=== PATIENT | female | born 1995 | race Two or more races ===

== ENCOUNTER 2018-08-21 09:46 | Emergency (ER) | payer MEDICAID, OTHER ==
[~2018-08-21] VITALS: Ht 154.9 cm; Wt 111.4 kg
[2018-08-21 09:58] VITALS: BP 102/80
== END 2018-08-21 11:09 | disposition home or self-care (01) ==
LOC: ER 09:47
DX: B20 Human immunodeficiency virus [HIV] disease (principal); Z02.89 Encounter for other administrative examinations; Z88.8 Allergy status to other drugs, medicaments and biological substances
CPT/HCPCS: 99281

== ENCOUNTER 2018-09-18 10:49 | Emergency (ER) | payer MEDICAID ==
[~2018-09-18] VITALS: Ht 154.9 cm; Wt 106.8 kg
[2018-09-18 10:52] VITALS: BP 120/78
[2018-09-18] MEDS ORDERED: NAPR500T6 PO (11:47)
== END 2018-09-18 12:05 | disposition home or self-care (01) ==
LOC: ER 10:50
DX: M76.61 Achilles tendinitis, right leg (principal); Z88.8 Allergy status to other drugs, medicaments and biological substances
CPT/HCPCS: 73610; 99283

== ENCOUNTER 2018-09-26 15:31 | Outpatient (CLI) | payer MEDICAID ==
[~2018-09-26 15:31] MED LIST: NAPR500T6 PO
[2018-09-26 15:35] VITALS: BP 114/71
== END 2018-09-26 16:09 | disposition home or self-care (01) ==
LOC: ORTHO 15:31
PROVIDERS: ATTEND Orthopaedic Surgery
DX: M25.571 Pain in right ankle and joints of right foot (principal)
CPT/HCPCS: 73610; 73650; G0463

== ENCOUNTER 2018-12-25 11:23 | Emergency (ER) | payer MEDICAID ==
[~2018-12-25] VITALS: Ht 152.4 cm; Wt 113.6 kg
[2018-12-25 11:37] VITALS: BP 164/82
--- NOTE | 2018-12-25 12:05 | NUR ---
pt has been out of her med [facility] for past 4 mos. getting the run around by medicare and [facility]. requesting help for resources. social work program coordinator juan called. left message.
[2018-12-25] MEDS ORDERED: ELVI1TAB3 PO (12:48)
== END 2018-12-25 13:19 | disposition home or self-care (01) ==
LOC: ER 11:24
DX: B20 Human immunodeficiency virus [HIV] disease (principal); Z79.899 Other long term (current) drug therapy
CPT/HCPCS: 99283

== ENCOUNTER 2019-06-18 07:53 | Emergency (ER) | payer MEDICAID ==
[~2019-06-18] VITALS: Ht 154.9 cm; Wt 123.3 kg
[~2019-06-18 07:53] MED LIST changes: +ELVI1TAB3 PO
[2019-06-18 09:14] VITALS: BP 135/78
[2019-06-18 09:28] LABS: CLARITY,URINE CLEAR (Clear); COLOR,URINE YELLOW (Yellow); GLUCOSE, URINE NEGATIVE (Neg); KETONES,URINE NEGATIVE (Neg); LEUKOCYTE ESTERASE ,URINE NEGATIVE (Neg); NITRITES, URINE NEGATIVE (Neg); OCCULT BLOOD,URINE TRACE-INTACT (Neg); PROTEIN,URINE NEGATIVE (Neg); UA COLLECTION TYPE NON-SPECIFIED; URINE HCG NEGATIVE (NEG); UROBILINOGEN,URINE 0.2 E.U/dL (0.2-1.0)
[2019-06-18 09:29] LABS: BASOPHILS # (AUTO) 0.1 X10'3 (0-0.2); EOSINOPHILS # (AUTO) 0.1 X10'3 (0-0.9); EOSINOPHILS % (AUTO) 1.5 % (0-6); HEMOGLOBIN 13.3 g/dl (12.0-16.0); LYMPHOCYTES # (AUTO) 2.2 X10'3 (1.1-4.8); LYMPHOCYTES % (AUTO) 29.5 % (21-51); MEAN CORPUSCULAR HEMOGLOBIN 29.3 PG (27.0-31.0); MEAN CORPUSCULAR VOLUME 86.2 FL (78-98); MEAN PLATELET VOLUME 8.6 FL (7.4-10.4); MONOCYTES # (AUTO) 0.6 X10'3 (0-0.9); MONOCYTES % (AUTO) 7.4 % (2-12); NEUTROPHILS # (AUTO) 4.5 X10'3 (1.8-7.7); NEUTROPHILS % (AUTO) 60.6 % (42-75); PLATELET COUNT 258 X10'3 (140-440); RED BLOOD COUNT 4.52 X10'6 (4.20-5.60); RED CELL DISTRIBUTION WIDTH 15.4 % (11.5-14.5); WHITE BLOOD COUNT 7.5 X10'3 (4.5-11.0)
[2019-06-18 09:37] LABS: BACTERIA,URINE FEW /HPF (Neg); MUCUS STRANDS FEW /LPF (Neg); RBC,URINE 0-2 /HPF (0-2); SQUAMOUS EPITHELIAL CELL,UR MANY /LPF (FEW); WBC,URINE 0-4 /HPF (0-4)
[2019-06-18] MEDS ORDERED: IBUP-1985 PO (10:14)
[2019-06-18 10:15] LABS: ALANINE AMINOTRANSFERASE 35 U/L (12-78); ALBUMIN 3.8 G/DL (3.4-5.0); ALBUMIN/GLOBULIN RATIO 0.9 (1.1-1.5); ALKALINE PHOSPHATASE 98 IU/L (46-116); ANION GAP 9 (8-16); ASPARTATE AMINO TRANSFERASE 17 U/L (10-37); BILIRUBIN,TOTAL 0.2 MG/DL (0.1-1.0); BLOOD UREA NITROGEN 14 MG/DL (7-18); BUN/CREATININE RATIO 20.6 (6.6-38.0); CHLORIDE 104 MMOL/L (99-107); CREATININE 0.68 MG/DL (0.40-0.90); GLUCOSE 95 MG/DL (70-104); POTASSIUM 3.6 MMOL/L (3.5-5.1); SODIUM 138 MMOL/L (135-145); TOTAL CARBON DIOXIDE 24.9 MMOL/L (24-32); TOTAL PROTEIN 8.2 G/DL (6.4-8.2); eGFR > 90 ML/MIN
[2019-06-18 10:27] LABS: MAGNESIUM 1.7 MG/DL (1.5-2.4)
[2019-06-19 05:13] LABS: BASO (ABSOLUTE) 0.1 x10E3/uL (0.0-0.2); BASOS 1 % (Not Estab.); EOS 1 % (Not Estab.); EOS (ABSOLUTE) 0.1 x10E3/uL (0.0-0.4); HEMATOCRIT 37.3 % (34.0-46.6); HEMOGLOBIN 12.3 g/dL (11.1-15.9); LYMPHS 31 % (Not Estab.); LYMPHS (ABSOLUTE) 2.2 x10E3/uL (0.7-3.1); MCH 29.3 pg (26.6-33.0); MCV 89 fL (79-97); MONOCYTES 6 % (Not Estab.); MONOCYTES (ABSOLUTE) 0.5 x10E3/uL (0.1-0.9); NEUTROPHILS 61 % (Not Estab.); NEUTROPHILS (ABSOLUTE) 4.4 x10E3/uL (1.4-7.0); PLATELETS 266 x10E3/uL (150-450); RDW 15.8 % (11.7-15.4); WBC 7.2 x10E3/uL (3.4-10.8)
[2019-06-19 13:15] LABS: % CD 8 POS. LYMPH. 39.8 % (12.0-35.5); ABS. CD 8 SUPPRESSOR 876 /uL (109-897); ABSOLUTE CD 4 HELPER 704 /uL (359-1519)
[2019-06-19 17:29] LABS: ANTINUCLEAR ANTIBODIES Negative (Negative)
== END 2019-06-18 12:00 | disposition home or self-care (01) ==
LOC: ER 07:54
DX: M25.561 Pain in right knee (principal); M25.562 Pain in left knee; Z21 Asymptomatic human immunodeficiency virus [HIV] infection status; J45.909 Unspecified asthma, uncomplicated; Z87.891 Personal history of nicotine dependence; Z88.8 Allergy status to other drugs, medicaments and biological substances; Z79.899 Other long term (current) drug therapy
CPT/HCPCS: 36415; 72100; 73522; 73564; 80053; 81001; 81025; 83735; 84443; 85025; 86038; 86360; 86361; 87535; 99284

== ENCOUNTER 2019-07-21 01:50 | Emergency (ER) | payer MEDICAID ==
[~2019-07-21] VITALS: Ht 154.9 cm; Wt 122.7 kg
[~2019-07-21 01:50] MED LIST changes: +IBUP-1985 PO
[2019-07-21 01:51] VITALS: BP 133/88
[2019-07-21] MEDS ORDERED: benzonatate 100mg capsule PO ONE (02:15)
[2019-07-21] MEDS ORDERED: pseudoephedrine 30mg tablet PO ONE (02:15)
[2019-07-21] MEDS ORDERED: PSEU-259 PO (02:20)
[2019-07-21] MEDS ORDERED: BENZ-16 PO (02:20)
[2019-07-21] MEDS ORDERED: ALBU18HF2 INH (02:20)
== END 2019-07-21 02:52 | disposition home or self-care (01) ==
LOC: ER 01:50
DX: J45.909 Unspecified asthma, uncomplicated (principal); Z86.2 Personal history of diseases of the blood and blood-forming organs and certain disorders involving the immune mechanism; Z88.8 Allergy status to other drugs, medicaments and biological substances; Z79.899 Other long term (current) drug therapy
CPT/HCPCS: 99283

== ENCOUNTER 2019-07-31 21:08 | Emergency (ER) | payer MEDICAID ==
[~2019-07-31] VITALS: Ht 154.9 cm; Wt 122.0 kg
[~2019-07-31 21:08] MED LIST changes: +ALBU18HF2 INH; +BENZ-16 PO; +PSEU-259 PO
[2019-07-31 21:12] VITALS: BP 128/71
[2019-07-31] MEDS ORDERED: dexamethasone 4mg tablet PO ONE (21:40)
== END 2019-07-31 21:58 | disposition home or self-care (01) ==
LOC: ER 21:08
DX: R05 Cough (principal); J45.909 Unspecified asthma, uncomplicated; Z86.2 Personal history of diseases of the blood and blood-forming organs and certain disorders involving the immune mechanism; Z88.8 Allergy status to other drugs, medicaments and biological substances; Z79.899 Other long term (current) drug therapy
CPT/HCPCS: 71045; 99283

== ENCOUNTER 2019-11-02 20:11 | Emergency (ER) | payer MEDICAID ==
[~2019-11-02] VITALS: Ht 152.4 cm; Wt 124.5 kg
[~2019-11-02 20:11] MED LIST changes: -BENZ-16 PO
--- NOTE | 2019-11-02 20:25 | NUR ---
Pt has not been taking her HIV medications for the last 3 weeks.
[2019-11-02] MEDS ORDERED: normal saline 1000ML IV soln IVB ONE (21:45)
[2019-11-02 22:14] LABS: URINE HCG NEGATIVE (NEG)
[2019-11-02 22:19] LABS: OCCULT BLOOD STOOL POSITIVE (Neg)
[2019-11-02 22:23] LABS: ALANINE AMINOTRANSFERASE 65 U/L (12-78); ALBUMIN/GLOBULIN RATIO 0.9 (1.1-1.5); ALKALINE PHOSPHATASE 91 IU/L (46-116); ANION GAP 11 (8-16); ASPARTATE AMINO TRANSFERASE 31 U/L (10-37); BILIRUBIN,TOTAL 0.4 MG/DL (0.1-1.0); BLOOD UREA NITROGEN 8 MG/DL (7-18); BUN/CREATININE RATIO 11.4 (6.6-38.0); CALCIUM 9.2 MG/DL (8.5-10.1); CHLORIDE 105 MMOL/L (99-107); GLUCOSE 90 MG/DL (70-104); LIPASE 99 U/L (73-393); POTASSIUM 4.1 MMOL/L (3.5-5.1); SODIUM 141 MMOL/L (135-145); TOTAL CARBON DIOXIDE 24.6 MMOL/L (24-32); TOTAL PROTEIN 8.3 G/DL (6.4-8.2); eGFR > 90 ML/MIN
[2019-11-02] MEDS ORDERED: METR500T PO (22:25)
[2019-11-02] MEDS ORDERED: CIPR-259 PO (22:25)
[2019-11-02 22:42] VITALS: BP 121/75
[2019-11-02 22:44] LABS: BASOPHILS # (AUTO) 0.1 X10'3 (0-0.2); BASOPHILS % (AUTO) 0.8 % (0-1); EOSINOPHILS # (AUTO) 0.1 X10'3 (0-0.9); EOSINOPHILS % (AUTO) 1.6 % (0-6); HEMATOCRIT 41.2 % (35.0-45.0); HEMOGLOBIN 13.7 g/dl (12.0-16.0); LYMPHOCYTES # (AUTO) 2.1 X10'3 (1.1-4.8); LYMPHOCYTES % (AUTO) 27.9 % (21-51); MEAN CORPUSCULAR HEMOGLOBIN 29.6 PG (27.0-31.0); MEAN CORPUSCULAR HGB CONC 33.3 g/dL (33.0-36.5); MEAN CORPUSCULAR VOLUME 88.9 FL (78-98); MEAN PLATELET VOLUME 8.9 FL (7.4-10.4); MONOCYTES # (AUTO) 0.5 X10'3 (0-0.9); MONOCYTES % (AUTO) 6.9 % (2-12); NEUTROPHILS # (AUTO) 4.7 X10'3 (1.8-7.7); NEUTROPHILS % (AUTO) 62.8 % (42-75); PLATELET COUNT 294 X10'3 (140-440); RED BLOOD COUNT 4.64 X10'6 (4.20-5.60); RED CELL DISTRIBUTION WIDTH 13.7 % (11.5-14.5); WHITE BLOOD COUNT 7.5 X10'3 (4.5-11.0)
[2019-11-02 22:57] LABS: CLARITY,URINE SLIGHTLY CLOUDY (Clear); COLOR,URINE YELLOW (Yellow); GLUCOSE, URINE NEGATIVE (Neg); KETONES,URINE NEGATIVE (Neg); LEUKOCYTE ESTERASE ,URINE SMALL (Neg); NITRITES, URINE NEGATIVE (Neg); OCCULT BLOOD,URINE TRACE-INTACT (Neg); PH,URINE 5.5 (4.8-8.0); PROTEIN,URINE NEGATIVE (Neg); UROBILINOGEN,URINE 0.2 E.U/dL (0.2-1.0)
[2019-11-02 23:01] LABS: UA COLLECTION TYPE CLN CATCH MIDSTREAM
[2019-11-02 23:12] LABS: BACTERIA,URINE FEW /HPF (Neg); MUCUS STRANDS FEW /LPF (Neg); RBC,URINE NONE SEEN /HPF (0-2); SQUAMOUS EPITHELIAL CELL,UR MANY /LPF (FEW); WBC,URINE 0-4 /HPF (0-4)
== END 2019-11-02 22:43 | disposition home or self-care (01) ==
LOC: ER 20:12
DX: K62.5 Hemorrhage of anus and rectum (principal); R19.7 Diarrhea, unspecified; R10.30 Lower abdominal pain, unspecified; J45.909 Unspecified asthma, uncomplicated; Z86.2 Personal history of diseases of the blood and blood-forming organs and certain disorders involving the immune mechanism; Z88.0 Allergy status to penicillin; Z79.899 Other long term (current) drug therapy
CPT/HCPCS: 36415; 74176; 80053; 81001; 81025; 82272; 83690; 85025; 96360; 99284; J7030

== ENCOUNTER 2019-11-03 06:58 | Emergency (ER) | payer MEDICAID ==
[~2019-11-03] VITALS: Ht 162.6 cm; Wt 123.8 kg
[~2019-11-03 06:58] MED LIST changes: +CIPR-259 PO; +METR500T PO
[2019-11-03 07:00] VITALS: BP 126/84
== END 2019-11-03 07:44 | disposition home or self-care (01) ==
LOC: ER 06:59
DX: K62.5 Hemorrhage of anus and rectum (principal); J45.909 Unspecified asthma, uncomplicated; Z88.8 Allergy status to other drugs, medicaments and biological substances; Z79.2 Long term (current) use of antibiotics; Z79.899 Other long term (current) drug therapy
CPT/HCPCS: 99281

== ENCOUNTER 2019-11-13 14:45 | Emergency (ER) | payer MEDICAID ==
[~2019-11-13] VITALS: Ht 154.9 cm; Wt 125.0 kg
[~2019-11-13 14:45] MED LIST changes: -METR500T PO
[2019-11-13] MEDS ORDERED: charcoal, activated 50 GM/240 ML bottle PO ONE (14:55)
[2019-11-13 15:28] LABS: BASOPHILS # (AUTO) 0.1 X10'3 (0-0.2); BASOPHILS % (AUTO) 0.9 % (0-1); EOSINOPHILS # (AUTO) 0.1 X10'3 (0-0.9); EOSINOPHILS % (AUTO) 1.4 % (0-6); HEMATOCRIT 39.2 % (35.0-45.0); HEMOGLOBIN 13.1 g/dl (12.0-16.0); LYMPHOCYTES # (AUTO) 1.8 X10'3 (1.1-4.8); LYMPHOCYTES % (AUTO) 24.4 % (21-51); MEAN CORPUSCULAR HEMOGLOBIN 29.7 PG (27.0-31.0); MEAN CORPUSCULAR HGB CONC 33.3 g/dL (33.0-36.5); MEAN CORPUSCULAR VOLUME 89.1 FL (78-98); MEAN PLATELET VOLUME 9.1 FL (7.4-10.4); MONOCYTES # (AUTO) 0.7 X10'3 (0-0.9); MONOCYTES % (AUTO) 9.1 % (2-12); NEUTROPHILS # (AUTO) 4.8 X10'3 (1.8-7.7); NEUTROPHILS % (AUTO) 64.2 % (42-75); PLATELET COUNT 231 X10'3 (140-440); RED CELL DISTRIBUTION WIDTH 13.6 % (11.5-14.5); WHITE BLOOD COUNT 7.4 X10'3 (4.5-11.0)
--- NOTE | 2019-11-13 15:34 | NUR ---
TC TO POISON CONTROL FOR ADVICE. PATIENT TOLERATED ACTIVATED CHARCOAL WELL. BP 111/80, HR 79, RR 16
[2019-11-13] MEDS ORDERED: normal saline 1000ML IV soln IVB ONE (15:40)
[2019-11-13 15:41] LABS: ALANINE AMINOTRANSFERASE 77 U/L (12-78); ALBUMIN 3.7 G/DL (3.4-5.0); ALBUMIN/GLOBULIN RATIO 0.9 (1.1-1.5); ALKALINE PHOSPHATASE 81 IU/L (46-116); ANION GAP 10 (8-16); ASPARTATE AMINO TRANSFERASE 35 U/L (10-37); BILIRUBIN,TOTAL 0.6 MG/DL (0.1-1.0); BLOOD UREA NITROGEN 9 MG/DL (7-18); CALCIUM 8.9 MG/DL (8.5-10.1); CHLORIDE 105 MMOL/L (99-107); CREATININE 0.69 MG/DL (0.40-0.90); GLUCOSE 111 MG/DL (70-104); POTASSIUM 3.5 MMOL/L (3.5-5.1); SODIUM 139 MMOL/L (135-145); TOTAL CARBON DIOXIDE 24.1 MMOL/L (24-32); TOTAL PROTEIN 7.6 G/DL (6.4-8.2); eGFR > 90 ML/MIN
[2019-11-13 15:50] LABS: ACETAMINOPHEN < 2.0 UG/ML (10-30); ETHANOL < 0.010 GM/DL (0.0-0.010)
[2019-11-13 18:28] VITALS: BP 114/79
[2019-11-13 18:47] LABS: URINE HCG NEGATIVE (NEG)
[2019-11-13 19:00] LABS: CLARITY,URINE SLIGHTLY CLOUDY (Clear); COLOR,URINE YELLOW (Yellow); GLUCOSE, URINE NEGATIVE (Neg); KETONES,URINE NEGATIVE (Neg); LEUKOCYTE ESTERASE ,URINE SMALL (Neg); NITRITES, URINE NEGATIVE (Neg); OCCULT BLOOD,URINE NEGATIVE (Neg); PROTEIN,URINE NEGATIVE (Neg)
[2019-11-13 19:10] LABS: URINE AMPHETAMINE SCREEN NEGATIVE (Neg); URINE BARBITUATE SCREEN NEGATIVE (Neg); URINE BENZODIAZEPINES SCREEN NEGATIVE (Neg); URINE CANNABINOID SCREEN NEGATIVE (Neg); URINE COCAINE SCREEN NEGATIVE (Neg); URINE METHADONE SCREEN NEGATIVE (Neg); URINE OPIATE SCREEN NEGATIVE (Neg); URINE PHENCYCLIDINE SCREEN NEGATIVE (Neg)
[2019-11-13 19:18] LABS: BACTERIA,URINE 2+ /HPF (Neg); RBC,URINE NONE SEEN /HPF (0-2); SQUAMOUS EPITHELIAL CELL,UR MODERATE /LPF (FEW); UA COLLECTION TYPE CLN CATCH MIDSTREAM; WBC,URINE 20-30 /HPF (0-4)
--- NOTE | 2019-11-13 19:29 | NUR ---
CALLED [facility]YAN REGARDING PT ELOPEMENT.
== END 2019-11-14 03:02 | disposition left against medical advice (07) ==
LOC: ER 14:45
DX: T43.211A Poisoning by selective serotonin and norepinephrine reuptake inhibitors, accidental (unintentional), initial encounter (principal); F32.9 Major depressive disorder, single episode, unspecified; J45.909 Unspecified asthma, uncomplicated; Z21 Asymptomatic human immunodeficiency virus [HIV] infection status; Z86.2 Personal history of diseases of the blood and blood-forming organs and certain disorders involving the immune mechanism; Z88.8 Allergy status to other drugs, medicaments and biological substances; Z79.899 Other long term (current) drug therapy
CPT/HCPCS: 36415; 80053; 80305; 80320; 80329; 81001; 81025; 84443; 85025; 93005; 96360; 96361; 99291; J7030; 99285